=== PATIENT | male | born 1945 | race Caucasian/White ===

== ENCOUNTER 2016-04-11 14:10 | Inpatient (IN) | payer MEDICARE, OTHER ==
[~2016-04-11] VITALS: Ht 172.7 cm; Wt 71.7 kg
[2016-04-14] MEDS ORDERED: CLON0.5T PO (09:04)
[2016-04-14] MEDS ORDERED: MULT1TAB85 PO (09:04)
[2016-04-14] MEDS ORDERED: MELO-1 PO (09:04)
[2016-04-14] MEDS ORDERED: MELA1CAP PO (09:04)
[2016-04-14] MEDS ORDERED: BENA25TA3 PO (09:04)
[2016-04-14] MEDS ORDERED: ASPI1TAB69 PO (09:04)
[2016-04-14] MEDS ORDERED: PRAM1TAB PO (09:04)
[2016-04-14] MEDS ORDERED: VITA100018 PO (09:04)
[2016-04-14] MEDS ORDERED: FLUO10CA5 PO (09:04)
[2016-04-14] MEDS ORDERED: OCUVTAB4 PO (09:04)
[2016-04-14] MEDS ORDERED: TRAZ50TA12 PO (09:04)
[2016-04-14] MEDS ORDERED: CARB25TA9 PO ×2 (09:04)
[2016-04-14] MEDS ORDERED: BUPR150T3 PO (09:21)
[2016-04-30] MEDS ORDERED: ceFAZolin 2 GM PREMIX 50 ML IV SCH (10:45)
[2016-04-30] MEDS ORDERED: INSULIN HUMAN REGULAR 1,000 UNITS/10 ML VIAL SQ PRN (10:45)
[2016-04-30] MEDS: ROPIVACAINE PERI-ARTICULAR INJECTION. PERIART SCH ×10 (10:45→13:33)
[2016-04-30] MEDS ORDERED: LACTATED RINGER'S 1000 ML IV SCH (10:45)
[2016-04-30] MEDS: POVIDONE IODINE 7.5% SCRUB 118 ML BOTTLE TOP SCH (10:45)
[2016-04-30] MEDS ORDERED: DEXAMETHASONE SOD PHOS 20 MG/5 ML VIAL IV SCH (10:45)
[2016-04-30] MEDS ORDERED: SODIUM CHLORID 0.9% 500 ML IV SCH (10:45)
[2016-04-30] MEDS: SODIUM CHLORIDE 0.9% IV SCH ×2 (10:45→13:08)
[2016-04-30] MEDS ORDERED: METOPROLOL TARTRATE 25 MG TAB PO PRN (10:45)
[2016-04-30] MEDS: TRANEXAMIC ACID IV SCH ×2 (10:45→13:08)
[2016-04-30] MEDS ORDERED: VANCOMYCIN 1000 MG/NS 250 ML (for <70 kg) IV SCH ×2 (10:45)
[2016-04-30] MEDS ORDERED: MELA5TAB15 PO (11:14)
[2016-04-30] MEDS ORDERED: BUPIVACAINE LIPOSOME PF 1.3% 20 ML VIAL ONE (11:16)
[2016-04-30 11:17] VITALS: BP 121/78; PULSE 69; RESP 20; TEMP 97.4; O2SAT 99
[2016-04-30] MEDS ORDERED: LACTATED RINGER'S 1000 ML INJ 1,000 ML IV ONE (11:55)
[2016-04-30] MEDS ORDERED: PROPOFOL 200 MG/20 ML AMP IV ONE (11:55)
[2016-04-30] MEDS ORDERED: MIDAZOLAM HCL 5 MG/5 ML VIAL ONE (12:08)
[2016-04-30] MEDS ORDERED: DEXAMETHASONE SOD PHOS 4 MG/ML VIAL ONE (12:08)
[2016-04-30] MEDS ORDERED: GENTAMICIN SULFATE 80 MG/2 ML VIAL ONE (12:18)
[2016-04-30] MEDS: SODIUM CHLOR 0.9% 1000 ML INJ 1,000 ML IV SCH (14:33)
--- NOTE | 2016-04-30 14:37 | PD.OP ---
cc: Efrain Moura MD Operative Report Date of Surgery: Apr 30, 2016 Preoperative Diagnosis: Left knee severe osteoarthritis Postoperative Diagnosis: Same Procedure: Left total knee arthroplasty Anesthesia: Spinal and adductor canal block Surgeon: Efrain Moura Service Plumber(s): KAHLIL Rose The surgical procedure was assisted by my Advanced Registered Nurse Practitioner. My RADIO NEWS WRITER presence was necessary throughout this case for the manipulation and positioning of the surgical extremity. My RADIO NEWS WRITER was assisting me throughout the duration of this procedure. The skill set of an Advance Registered Nurse Practitioner was medically necessary to complete this procedure. During the surgical case, the surgical garment assembler was working at the back table and the Advance Registered Nurse Practitioner was directly assisting me. Operation and Findings: IMPLANTS: DePuy Attune: Patella: size 38. Femur, posterior stabilized size 7. Tibia, rotating platform size 6. Tibial insert, rotating platform, posterior stabilized size 6 mm thickness. ESTIMATED BLOOD LOSS: 150 cc TOURNIQUET TIME: 40 minutes at 250 mmHg pressure. JUSTIFICATION FOR PROCEDURE: The patient has end-stage osteoarthritis to the knee. There is an attached conservative measures pathway form in the chart that describes the nonoperative measures that were undertaken prior to consideration of surgical management. The patient understood the risks and benefits of surgical management. See my office notes for further details PROCEDURE: The patient was brought back to the operative theatre. Adequate anesthesia was obtained. The patient received intravenous vancomycin and Ancef. The lower extremity was prepped and draped in the usual sterile fashion.The leg was exsanguinated, the tourniquet was raised. A standard anterior incision was performed followed by medial parapatellar arthrotomy was performed. End-stage arthritis was identified. Osteotomy of the patella was performed. We drilled holes for the patella. We trialed the patella component. We placed an intramedullary guide into the distal femur. We ultimately resected 12 mm off of the distal femur in 5 degrees of valgus. The remnants of the ACL and PCL were resected. Osteotomy of the proximal tibia was performed, resecting 5 mm off of the medial side. This was done with 3 degrees of posterior slope using an extramedullary guide. The distal end of the guide was placed in the mid aspect of the ankle. The femur was sized, and four chamfer cuts were completed in 3 of external rotation. We then cut the central box in the distal femur to replace the PCL. We resected the remnants of the menisci and removed osteophytes off of the femur and tibia. We then trialed the knee. We punched the tibia for the keel, and then used standard technique to cement in components. Excess cement was removed. We trialed the knee again and the final polyethylene thickness was chosen to provide extension to 0 degrees, and flexion of 140 degrees to gravity. The ligaments were appropriately balanced. Lateral release was not necessary to obtain excellent patellofemoral tracking. The tourniquet was released and adequate hemostasis was obtained. An intra- articular injection of a ropivacaine cocktail was injected. The posterior knee was inspected for excess cement, which was removed. The final polyethylene was put into position after thorough irrigation. We then closed deep fascia with a #2 Stratafix followed by skin with 2-0 Vicryl followed by tatiana. Postop plan is to weight-bear as tolerated. DVT prophylaxis will be performed with Anoop, JESSICA fisher, early mobilization, and Lovenox followed by aspirin. Efrain Moura MD Apr 30, 2016 14:37
[2016-04-30] MEDS ORDERED: NORC5TAB PO (14:39)
[2016-04-30] MEDS ORDERED: ASPI325T PO (14:39)
[2016-04-30] MEDS ORDERED: ENOX40P SQ (14:39)
[2016-04-30] MEDS ORDERED: ZOLPIDEM TARTRATE 5 MG TAB PO PRN (14:45)
[2016-04-30] MEDS ORDERED: TRANEXAMIC ACID IV SCH (14:45)
[2016-04-30] MEDS ORDERED: SODIUM CHLORIDE 0.9% IV SCH (14:45)
[2016-04-30] MEDS ORDERED: Post-op Orders (for Pharmacy) MISC XX ONE (14:45)
[2016-04-30] MEDS ORDERED: diphenhydrAMINE HCL 50 MG/ML VIAL IV PRN (14:45)
[2016-04-30] MEDS ORDERED: MORPHINE SULFATE 4 MG/ML INJ IV PUSH PRN (14:45)
[2016-04-30] MEDS ORDERED: SODIUM CHLORIDE 0.9% FLUSH 5 ML FLUSH IVF PRN (14:45)
[2016-04-30] MEDS ORDERED: ACETAMINOPHEN/HYDROcodone 325 MG/5 MG TAB PO PRN (14:45)
[2016-04-30] MEDS ORDERED: clonazePAM 0.5 MG TAB PO PRN (14:45)
[2016-04-30] MEDS ORDERED: ONDANSETRON HCL 4 MG/2 ML VIAL IVP PRN (14:45)
[2016-04-30] MEDS ORDERED: NALOXONE HCL 0.4 MG/ML AMP IV PRN (14:45)
[2016-04-30] MEDS ORDERED: ALUMINUM/MAGNESIUM/SIMETH 30 ML CUP PO PRN (14:45)
[2016-04-30] MEDS ORDERED: MAGNESIUM HYDROXIDE SUSP 30 ML CUP PO PRN (14:45)
[2016-04-30] MEDS ORDERED: BISACODYL 10 MG SUPP PR PRN (14:45)
[2016-04-30] MEDS ORDERED: DO NOT ADM ANY ANTICOAGULANT DRUGS XX PRN (15:15)
--- NOTE | 2016-04-30 15:50 | RADRPT ---
EXAM DATE/TIME: 04/30/2016 14:55 [facility] COMPARISON: No previous studies available for comparison. INDICATIONS : Post Op left knee MEDICAL HISTORY : None. SURGICAL HISTORY : None. ENCOUNTER: Initial ACUITY: 1 day PAIN SCORE: Non-responsive. LOCATION: Left knee FINDINGS: The patient is status post left total knee replacement with prosthesis in good position. There is n o acute fracture or dislocation. CONCLUSION: Status post left total knee replacement with prosthesis in good position. Jimmie Arriola MD on April 30, 2016 at 15:34 Board Certified Radiologist. This report was verified electronically.
[2016-04-30] MEDS ORDERED: PILL SPLITTER OTHER PRN (17:15)
[2016-04-30] MEDS ORDERED: *morphine SULFATE 8 MG/ML PERIprocedure ONLY ONE (17:29)
[2016-04-30 18:30] VITALS: BP 110/82; PULSE 81; RESP 17; TEMP 96.4; O2SAT 95
[2016-04-30 20:31] VITALS: BP 127/74; PULSE 93; RESP 18; TEMP 97; O2SAT 97
[2016-04-30] MEDS: PRAMIPEXOLE DIHYDROCHLORIDE 1 MG TAB PO SCH ×2 (20:37→23:36)
[2016-04-30] MEDS: CARBIDOPA/LEVODOPA 25 MG/100 MG TAB PO SCH ×2 (20:38→23:27)
[2016-04-30] MEDS ORDERED: diphenhydrAMINE HCL 25 MG CAP PO SCH (21:00)
[2016-04-30] MEDS ORDERED: traZODone HCL 50 MG TAB PO SCH (21:00)
[2016-04-30] MEDS: SODIUM CHLORIDE 0.9% FLUSH 5 ML FLUSH IVF SCH (23:29)
[2016-05-01 00:28] VITALS: BP 107/65; PULSE 80; RESP 19; TEMP 96.5; O2SAT 96
[2016-05-01] MEDS: SODIUM CHLOR 0.9% 1000 ML INJ 1,000 ML IV SCH ×2 (00:33→10:33)
[2016-05-01 04:33] VITALS: BP 103/61; PULSE 83; RESP 18; TEMP 96.2; O2SAT 97
[2016-05-01 06:58] LABS: HEMATOCRIT 34.1 % (39.0-51.0); MEAN CELL VOLUME 93.8 FL (80.0-100.0); MEAN CORPUSCULAR HEMOGLOBIN 31.4 PG (27.0-34.0); MEAN CORPUSCULAR HGB CONC 33.5 % (32.0-36.0); PLATELET COUNT 189 TH/MM3 (150-450); RED BLOOD COUNT 3.63 MIL/MM3 (4.50-5.90); RED CELL DISTRIBUTION WIDTH 13.3 % (11.6-17.2); REVIEW FLAG FINAL; WHITE BLOOD COUNT 12.3 TH/MM3 (4.0-11.0)
[2016-05-01 07:34] VITALS: BP 110/67; PULSE 73; RESP 16; TEMP 95.6; O2SAT 97
[2016-05-01] MEDS ORDERED: DEXAMETHASONE SOD PHOS 20 MG/5 ML VIAL IV ONE (07:45)
[2016-05-01] MEDS: PRAMIPEXOLE DIHYDROCHLORIDE 1 MG TAB PO SCH ×3 (08:04→17:30)
[2016-05-01] MEDS: CARBIDOPA/LEVODOPA 25 MG/100 MG TAB PO SCH ×3 (08:04→17:35)
[2016-05-01] MEDS ORDERED: FLUoxetine HCL 10 MG CAP PO SCH (09:00)
[2016-05-01] MEDS ORDERED: buPROPion HCL 150 MG SUSTAINED RELEASE TAB PO SCH (09:00)
[2016-05-01] MEDS: SODIUM CHLORIDE 0.9% FLUSH 5 ML FLUSH IVF SCH (09:00)
[2016-05-01] MEDS: POVIDONE IODINE 7.5% SCRUB 118 ML BOTTLE TOP SCH (10:45)
[2016-05-01 12:00] VITALS: BP 94/54; PULSE 80; RESP 16; TEMP 95.8; O2SAT 95
[2016-05-01] MEDS: ACETAMINOPHEN/HYDROcodone 325 MG/5 MG TAB PO PRN ×2 (12:03→17:30)
--- NOTE | 2016-05-01 12:04 | PD.ORT.PN ---
Subjective Post Op Day #: 1 Subjective Remarks The patient is resting in bed in NAD. Patient's pain is mild. Patient is ambulatory and voiding. Objective Vitals Vital Signs Date Time Temp Pulse Resp B/P Pulse Ox O2 Delivery O2 Flow Rate FiO2 05/01/16 07:34 95.6 73 16 110/67 97 05/01/16 04:33 96.2 83 18 103/61 97 05/01/16 00:28 96.5 80 19 107/65 96 04/30/16 21:53 21 04/30/16 20:31 97.0 93 18 127/74 97 04/30/16 18:30 96.4 81 17 110/82 95 04/30/16 18:14 97.8 77 20 112/56 95 Room Air 04/30/16 18:00 77 20 112/56 95 Room Air 04/30/16 17:45 75 20 124/82 99 Room Air 04/30/16 17:30 77 20 118/50 96 Room Air 04/30/16 17:15 72 20 133/62 98 Room Air 04/30/16 17:00 75 22 119/80 97 Room Air 04/30/16 16:45 75 22 123/83 95 Room Air 04/30/16 16:30 89 22 126/79 95 Room Air 04/30/16 16:15 67 22 117/59 95 Room Air 04/30/16 16:00 65 22 108/62 94 Room Air 04/30/16 15:45 67 22 130/83 95 Room Air 04/30/16 15:30 69 22 119/81 99 Room Air 04/30/16 15:15 71 22 114/76 96 Nasal Cannula 2 04/30/16 14:57 97.4 71 22 109/78 95 Nasal Cannula 2 I/O 04/30/16 04/30/16 04/30/16 05/01/16 05/01/16 05/01/16 07:00 15:00 23:00 07:00 15:00 23:00 Intake Total 1500 ml 855 ml 360 ml Output Total 450 ml 600 ml Balance 1050 ml 255 ml 360 ml Intake Oral 600 ml 360 ml IV Total 255 ml Other 1500 ml Output Urine Total 400 ml 600 ml Estimated Blood Loss 50 ml # Voids 2 2 # Bowel Movements 0 0 Result Diagram: 05/01/16 0543 Imaging Last 24 hours Impressions Knee X-Ray 2/8/17 1433 Signed Impressions: Service Date/Time: Saturday, April 30, 2016 14:55 - CONCLUSION: Status post left total knee replacement with prosthesis in good position. Jimmie Arriola MD Procedures Left TKA Objective Remarks Patient's dressings are changed with scant serosanguineous drainage. Incision is well approximated with surgical clips intact. No redness or s/s of infection. EHL/TA/G intact. 2+ pedal pulse. Calf is soft and nontender. Minimal swelling. + SILT. Assessment & Plan Ortho Post Op Day #: 1 Problem List: Assessment and Plan POD #1: Left TKA 1. WBAT LLE 2. Lovenox for DVT prophylaxis 3. Ice to the left knee 4. Stable for discharge home with home health today. Elmer Rizzo May 01, 2016 12:04
--- NOTE | 2016-05-01 12:38 | HHI.DCPOC ---
Discharge Care Plan Diagnosis: (1) Primary localized osteoarthrosis, lower leg (2) Status post total knee replacement, left Your Health Problems Are: Difficulty with ADL Goals to Promote Your Health * To prevent worsening of your condition and complications * To maintain your health at the optimal level Directions to Meet Your Goals Take your medications as prescribed Follow your dietary instruction Follow activity as directed Keep your appointments as scheduled Take your immunizations and boosters as scheduled If your symptoms worsen call your PCP, if no PCP go to Urgent Care Center or Emergency Room Smoking is Dangerous to Your Health. Avoid second hand smoke Call the 24-hour hour crisis hotline for domestic abuse at Elmer Rizzo May 01, 2016 12:38
--- NOTE | 2016-05-01 12:39 | HHI.FF ---
Face to Face Verification Diagnosis: (1) Primary localized osteoarthrosis, lower leg (2) Status post total knee replacement, left Physical Therapy Gait training, Transfer training, bed to chair Knee: Total knee Left LE Weight Bearing: WB as tolerated Left LE Range of Motion: Active ROM Nursing Nursing: Park teaching, Dressing changes Dressing Changes: Daily dressing change I have seen patient Jose Eduardo Cunningham on 05/01/16. My clinical findings support the need for the requested home health care services because: Limited ability to care for self High risk of falls I certify that my clinical findings support that this patient is homebound because: Post-op weakness Unsteady gait/balance Elmer Rizzo May 01, 2016 12:38
[2016-05-01] MEDS ORDERED: WALKER WHEELS/F1 MIS (12:40)
[2016-05-01] MEDS ORDERED: COMMODE 3-IN-11 MIS (12:40)
[2016-05-01] MEDS ORDERED: CPMMACHINE (12:40)
[2016-05-01] MEDS ORDERED: ENOXAPARIN SODIUM 40 MG/0.4 ML SYRINGE SQ SCH (13:53)
[2016-05-01 17:51] VITALS: BP 98/60; PULSE 84; RESP 18; TEMP 99; O2SAT 99
[2016-05-01] MEDS ORDERED: DOCUSATE SODIUM 100 MG CAP PO SCH (21:00)
[2016-05-01] MEDS ORDERED: MULTIVITAMINS/MINERALS THERAPEUTIC TAB PO SCH (21:00)
--- NOTE | 2016-05-03 23:57 | HHI.DS ---
Discharge Summary Admission Date Apr 30, 2016 at 09:46 Discharge Date: May 01, 2016 Admitting Diagnosis Primary localized OA, lower leg Status post total knee replacement, left Diagnosis: (1) Primary localized osteoarthrosis, lower leg Diagnosis: Principal (2) Status post total knee replacement, left Diagnosis: Principal Procedures Left TKA Brief History This is a 70 year old male patient with severe OA of the left knee. CBC/BMP: 05/01/16 0543 Significant Findings Laboratory Tests Test 05/01/16 05:43 White Blood Count 12.3 TH/MM3 (4.0-11.0) Red Blood Count 3.63 MIL/MM3 (4.50-5.90) Hemoglobin 11.4 GM/DL (13.0-17.0) Hematocrit 34.1 % (39.0-51.0) PE at Discharge Patient's dressings are changed with scant serosanguineous drainage. Incision is well approximated with surgical clips intact. No redness or s/s of infection. EHL/TA/G intact. 2+ pedal pulse. Calf is soft and nontender. Minimal swelling. + SILT. Hospital Course The patient was admitted to the hospital for severe OA of the left knee to have a left TKA. The patient's surgery went well without complications. The patient had a normal hospital course. The patient is WBAT. The patient will be discharged home with home health and will f/u in the office in. Pt Condition on Discharge: Stable Discharge Disposition: Disch w/ Home Health Serv Discharge Instructions Diet Instructions: As Tolerated, No Restrictions Activities You Can Perform: Weight Bearing as Mohan Activities to Avoid: Strenuous Activity Follow up Referrals: Orthopedics with Efrain Moura MD SNF/[facility]/ with Nurse cotton header [phone] New Medications: Aspirin (Aspirin) 325 Mg Tab 325 MG PO DAILY Start Aspirin after Lovenox is completed. Prevent Blood Clot # 30 Ref 0 TAB Commode 3-in-1 (Commode 3-in-1) 1 Mis Mis 1 EA .ROUTE DIRECTED #1 Ref 0 EA CPM-Continuous Passive Motion Machine (CPM-Continuous Passive Motion Machine) 1 Ea Device 1 EA .ROUTE DIRECTED #1 Ref 0 EA Enoxaparin Inj (Lovenox Inj) 40 Mg/0.4 Ml Syr 40 MG SQ DAILY Start Aspirin after Lovenox is completed. Blood Clot Prevention # 10 Ref 0 SYRINGE Hydrocodone-Acetaminophen ([place]) 5-325 mg Tab 1-2 TAB PO Q4H PRN PAIN #60 Ref 0 TAB Walker with Front Wheels (Walker with Front Wheels) 1 Mis Mis 1 EA .ROUTE DIRECTED #1 Ref 0 EA Continued Medications: Bupropion HCl ER 24 HR (Bupropion HCl ER 24 HR) 150 Mg Tab 150 MG PO DAILY Control Depression Ref 0 TAB Carbidopa-Levodopa (Carbidopa-Levodopa) 25-100 Mg Tab 1.5 TAB PO 0800,1300PM Parkinson Disease Mgmt #90 Ref 0 TAB Carbidopa-Levodopa (Carbidopa-Levodopa) 25-100 Mg Tab 1 TAB PO AT 6PM, AT 2300 Parkinson Disease Mgmt #90 Ref 0 TAB Cholecalciferol (Vitamin D3) 1,000 Unit Tab 1500 UNITS PO DAILY Nutritional Supplement #1 Ref 0 BOTTLE Clonazepam (Clonazepam) 0.5 Mg Tab 0.5 MG PO HS PRN SLEEP #60 Ref 0 TAB Diphenhydramine (Benadryl Allergy) 25 Mg Tab 25 MG PO HS ALLERGIES Ref 0 TAB Fluoxetine (Fluoxetine) 10 Mg Cap 10 MG PO DAILY #30 Ref 0 CAP Melatonin (Melatonin) 5 Mg Tab 5 MG PO HS Provide Good Sleep Ref 0 TAB Multiple Vitamins W/ Minerals (Multivitamin Men) 1 Tab Tab 1 TAB PO DAILY Nutritional Supplement Ref 0 TAB Multiple Vitamins W/ Minerals (Preservision Areds) 1 Tab 1 TAB PO BID Nutritional Supplement Ref 0 TAB Pramipexole (Pramipexole) 1 Mg Tab 1 MG PO QID Parkinson Disease Mgmt #60 Ref 0 TAB Trazodone (Trazodone) 50 Mg Tab 50 MG PO HS Control Depression #30 Ref 0 TAB Discontinued Medications: Aspirin (Aspirin) 81 Mg Tabdr 81 MG PO DAILY TAB Meloxicam (Meloxicam) 15 Mg Tab 15 MG PO DAILY Arthritis Pain #30 Ref 0 TAB Elmer Rizzo May 03, 2016 23:57
== END 2016-05-01 18:06 | disposition home health service (06) | DRG 470 ==
LOC: HSDI 04-30 09:46 → EDUNIT# 04-30 10:00 → N06A 04-30 18:29
PROVIDERS: ADMIT Orthopaedic Surgery; ATTEND Orthopaedic Surgery
PROC: 0QRF0JZ Replacement of Left Patella with Synthetic Substitute, Open Approach (ICD-10-PCS; 2016-04-30)
PROC: 0SRD0J9 Replacement of Left Knee Joint with Synthetic Substitute, Cemented, Open Approach (ICD-10-PCS; principal; 2016-04-30 12:36)
DX: M17.12 Unilateral primary osteoarthritis, left knee (principal); G20 Parkinson's disease; K21.9 Gastro-esophageal reflux disease without esophagitis
CPT/HCPCS: 73560; 85027; 86850; 86900; 86901; 94150; C1776; C9290; J0171; J0690; J0735; J1100; J1580; J1650; J1885; J2250; J2270; J2795; J3010; J7030; J7120; L1830

== ENCOUNTER → 2016-04-14 | Outpatient (CLI) | payer MEDICARE, OTHER ==
[~2016-04-14] MED LIST: ASPI1TAB69 PO; ASPI325T PO; ASPI81CH CHEW; BENA25TA3 PO; BUPR150T12 PO; BUPR150T3 PO; CARB25TA9 PO; CLON0.5T PO; COLY4000S PO; COMMODE 3-IN-11 MIS; CPMMACHINE; ENOX40P SQ; FLUO10CA5 PO; MELA1CAP PO; MELA5TAB15 PO; MELO-1 PO; MELO1POW14 PO; MULT1TAB85 PO; NALO1TAB2 PO; NORC5TAB PO; OCUVTAB4 PO; PRAM1TAB PO; TRAZ50TA12 PO; VITA100018 PO; WALKER WHEELS/F1 MIS
[2016-04-14 10:00] LABS: AUTOMATED NEUTROPHIL # 2.8 TH/MM3 (1.8-7.7); BASOPHIL % 0.7 % (0.0-2.0); EOSINOPHIL # 0.3 TH/MM3 (0-0.4); EOSINOPHIL % 5.6 % (0.0-4.0); HEMATOCRIT 40.4 % (39.0-51.0); HEMO FLAGS DIFF FINAL; LYMPH % 26.7 % (9.0-44.0); LYMPHOCYTE # 1.3 TH/MM3 (1.0-4.8); MEAN CELL VOLUME 92.3 FL (80.0-100.0); MEAN CORPUSCULAR HEMOGLOBIN 31.1 PG (27.0-34.0); MEAN CORPUSCULAR HGB CONC 33.7 % (32.0-36.0); MONO % 8.4 % (0.0-8.0); NEUT % 58.6 % (16.0-70.0); PLATELET COUNT 198 TH/MM3 (150-450); RED BLOOD COUNT 4.37 MIL/MM3 (4.50-5.90); RED CELL DISTRIBUTION WIDTH 13.7 % (11.6-17.2); WHITE BLOOD COUNT 4.7 TH/MM3 (4.0-11.0)
[2016-04-14 10:08] LABS: APTT (PATIENT) 27.5 SEC (24.3-30.1); INTERNATIONAL NORMALIZED RATIO 0.9 RATIO; PROTHROMBIN TIME - PATIENT 10.3 SEC (9.8-11.6)
[2016-04-14 10:36] LABS: BLOOD, URINE NEG (NEG); GLUCOSE,URINE NEG (NEG); KETONE, URINE NEG (NEG); MUCUS URINE FEW /lpf (OCC); NITRITE,URINE NEG (NEG); URINE COLOR YELLOW (YELLW/STRAW)
[2016-04-14 10:37] LABS: COMMENT (UR) CULT NOT INDICATED; CULTURE IF INDICATED CULT NOT INDICATED
[2016-04-14 10:43] LABS: WESTERGREN SEDIMENTATION RATE 5 mm/hr (0-20)
[2016-04-14 11:05] LABS: ALKALINE PHOSPHATASE 85 U/L (45-117); ALT (GPT) 11 U/L (12-78); ANION GAP 7 MEQ/L (5-15); AST (GOT) 10 U/L (15-37); BICARBONATE 29.1 MEQ/L (21.0-32.0); BLOOD UREA NITROGEN 24 MG/DL (7-18); CHLORIDE 104 MEQ/L (98-107); GLOMERULAR FILTRATION RATE 74 ML/MIN (>89); GLUCOSE,FASTING 92 MG/DL (74-99); POTASSIUM 3.7 MEQ/L (3.5-5.1); SODIUM (NA) 140 MEQ/L (136-145); TOTAL BILIRUBIN ADULT 0.4 MG/DL (0.2-1.0)
--- NOTE | 2016-04-14 12:26 | RADRPT ---
EXAM DATE/TIME: 04/14/2016 11:11 [facility] COMPARISON: No previous studies available for comparison. INDICATIONS : Evaluate for pneumonia, pneumothorax, communicable disease MEDICAL HISTORY : None. SURGICAL HISTORY : None. ENCOUNTER: Initial ACUITY: 1 day PAIN SCORE: 0/10 LOCATION: Bilateral chest FINDINGS: PA and lateral views of the chest demonstrate the lungs to be symmetrically aerated without evidence of mass, infiltrate or effusion. The cardiomediastinal contours are unremarkable. Osseous structure s are intact. CONCLUSION: 1. No acute cardiopulmonary findings. Elmer Loomis MD on April 14, 2016 at 12:24 Board Certified Radiologist. This report was verified electronically.
== END ==
LOC: CPRE 08:23
PROVIDERS: ATTEND Orthopaedic Surgery
DX: M17.12 Unilateral primary osteoarthritis, left knee (principal); M79.609 Pain in unspecified limb; Z01.812 Encounter for preprocedural laboratory examination; Z01.818 Encounter for other preprocedural examination; Z96.60 Presence of unspecified orthopedic joint implant
CPT/HCPCS: 36415; 71020; 80053; 81001; 85025; 85610; 85652; 85730

== ENCOUNTER 2016-06-09 12:01 | Emergency (ER) | payer MEDICARE, OTHER ==
[~2016-06-09] VITALS: Ht 172.7 cm; Wt 71.3 kg
[~2016-06-09 12:01] MED LIST changes: -ASPI1TAB69 PO; -ASPI81CH CHEW; -BUPR150T12 PO; -COLY4000S PO; -MELA1CAP PO; -MELO-1 PO; -MELO1POW14 PO; -NALO1TAB2 PO
[2016-06-09 12:08] VITALS: BP 119/75; PULSE 77; RESP 18; TEMP 98.2; O2SAT 98
[2016-06-09] MEDS ORDERED: MELO1POW14 PO (12:20)
[2016-06-09] MEDS ORDERED: ASPI81CH CHEW (12:20)
[2016-06-09] MEDS ORDERED: NALO1TAB2 PO (12:44)
[2016-06-09] MEDS ORDERED: COLY4000S PO (12:44)
--- NOTE | 2016-06-09 12:44 | PD ---
HPI Chief Complaint: GI Complaint Time Seen by Provider: 12:21 Travel History International Travel<30 days: No Contact w/Intl Traveler<30days: No Traveled to known affect area: No History of Present Illness HPI This 70-year-old male is complaining of constipation. he had.A knee replacement about 6 weeks ago. Since then his been going to rehabilitation. He finds a rehabilitation quite painful and he has had take about 4 Lortabs per day. He has been taking laxatives without much response. She is not having abdominal pain or distention. He does not have fever or chills. 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) Parkinson's Disease: Yes Psychiatric: Yes (DEPRESSION) Reproductive: No Respiratory: No Past Surgical History Abdominal Surgery: No Body Medical Devices: IMPLANTS Cardiac Surgery: No Ear Surgery: No Endocrine Surgery: No Eye Surgery: No Genitourinary Surgery: Yes (VASECTOMY) Oral Surgery: Yes (TONSILLECTOMY, WISDOM TEETH) Thoracic Surgery: No Other Surgery: Yes Social History Alcohol Use: Yes Tobacco Use: No Substance Use: Yes (occasional marijauna) Allergies-Medications (Allergen,Severity, Reaction): Coded Allergies: No Known Allergies (Unverified , 06/09/16) Reported Meds & Prescriptions Reported Meds & Active Scripts Active Reported Meloxicam (Meloxicam (Bulk)) 1 Pow Pow 15 Mg PO DAILY Aspirin 81 Mg Chew 81 Mg CHEW DAILY Melatonin 5 Mg Tab 5 Mg PO HS Bupropion HCl ER 24 HR (Bupropion HCl) 150 Mg Tab 150 Mg PO DAILY Preservision Areds (Multiple Vitamins W/ Minerals) 1 Tab 1 Tab PO BID Trazodone (Trazodone HCl) 50 Mg Tab 50 Mg PO HS Benadryl Allergy (Diphenhydramine HCl) 25 Mg Tab 25 Mg PO HS Multivitamin Men (Multiple Vitamins W/ Minerals) 1 Tab Tab 1 Tab PO DAILY Carbidopa-Levodopa 25-100 Mg Tab 1.5 Tab PO 0800,1300PM Vitamin D3 (Cholecalciferol) 1,000 Unit Tab 1,500 Units PO DAILY Clonazepam 0.5 Mg Tab 0.5 Mg PO HS PRN Fluoxetine (Fluoxetine HCl) 10 Mg Cap 10 Mg PO DAILY Pramipexole (Pramipexole Dihydrochloride) 1 Mg Tab 1 Mg PO QID Review of Systems General / Constitutional: No: Fever Eyes: No: Diploplia HENT: No: Headaches, Vertigo Cardiovascular: No: Chest Pain or Discomfort Respiratory: No: Cough, Shortness of Breath Gastrointestinal: Positive: Nausea, Loss of Appetite, No: Vomiting, Diarrhea Genitourinary: No: Urgency, Frequency Musculoskeletal: Positive: Myalgias, Arthralgias, Pain Skin: No Itching Physical Exam Narrative GENERAL: Well-developed male SKIN: Warm and dry. HEAD: Atraumatic. Normocephalic. EYES: Pupils equal and round. No scleral icterus. No injection or drainage. ENT: No nasal bleeding or discharge. Mucous membranes pink and moist. NECK: Trachea midline. No JVD. GASTROINTESTINAL: Abdomen soft, non-tender, nondistended. Hepatic and splenic margins not palpable. On rectal exam there is really no stool palpable MUSCULOSKELETAL: No obvious deformities. No clubbing. No cyanosis. No edema. NEUROLOGICAL: Awake and alert. No obvious cranial nerve deficits. Motor grossly within normal limits. Normal speech. PSYCHIATRIC: Appropriate mood and affect; insight and judgment normal. Data Data Last Documented VS Vital Signs Date Time Temp Pulse Resp B/P Pulse Ox O2 Delivery O2 Flow Rate FiO2 06/09/16 12:08 98.2 77 18 119/75 98 MDM Medical Decision Making Medical Screen Exam Complete: Yes Emergency Medical Condition: Yes Medical Record Reviewed: Yes Differential Diagnosis Differential includes constipation, opiate-induced constipation Narrative Course Patient does have some change in stool habits and related to his Lortab. I will prescribe some GoLYTELY. I think he is in acute distress at this time. I will also prescribe some Ativan to get case the GoLYTELY does not work Diagnosis Primary Impression: Constipation Qualified Code: K59.03 - Drug-induced constipation Scripts Naloxegol (Movantik)25 Mg Tab25 Mg PO DAILY #7 TAB Ref 0 Prov:Will Muhammad MD 06/09/16 Peg-Electrolytes (Golytely 236 gm)4,000 Ml Soln4,000 Ml PO ONCE #1 CONTAINER Ref 0 Prov:Will Muhammad MD 06/09/16 Disposition: 01 DISCHARGE HOME Condition: Stable Will Muhammad MD Jun 09, 2016 12:44
== END 2016-06-09 13:03 | disposition home or self-care (01) ==
LOC: PHED 12:01
DX: K59.03 Drug induced constipation (principal); F32.9 Major depressive disorder, single episode, unspecified; G20 Parkinson's disease
CPT/HCPCS: 99283